=== PATIENT | male | born 1995 | race Hispanic/Latino ===

== ENCOUNTER 2023-04-01 22:36 | Emergency (ER) | payer OTHER ==
[~2023-04-01] VITALS: Ht 167.6 cm; Wt 72.6 kg
[2023-04-01 22:38] VITALS: BP 111/79; PULSE 68; RESP 18
[2023-04-01] MEDS ORDERED: LORA10TA7 PO (22:53)
== END 2023-04-01 23:05 | disposition home or self-care (01) ==
LOC: EDH 22:36
DX: J30.9 Allergic rhinitis, unspecified (principal); R04.0 Epistaxis